=== PATIENT | female | born 1930 | race Caucasian/White ===

== ENCOUNTER 2018-10-29 10:33 | Emergency (ER) | payer MEDICARE, BC ==
[~2018-10-29] VITALS: Ht 149.9 cm; Wt 45.4 kg
[~2018-10-29 10:33] MED LIST: CALCIUM500 MG PO; CIPRO250 M1 PO; ONDANSETRON HCL4 M2 PO; PERCOCET PO; PHENERGAN 25 MG25 M1 PO; UNICOMPLEX M TA1 TA1 PO
[2018-10-29] MEDS ORDERED: CENTANY30 GM TOP (10:53)
[2018-10-29] MEDS ORDERED: AUGMENTIN 875-1 EACH PO (10:53)
[2018-10-29 11:59] VITALS: BP 174/99
== END 2018-10-29 11:59 | disposition home or self-care (01) ==
LOC: M.ERS 10:33
DX: S81.812A Laceration without foreign body, left lower leg, initial encounter (principal); Z88.8 Allergy status to other drugs, medicaments and biological substances; Z88.6 Allergy status to analgesic agent; W55.01XA Bitten by cat, initial encounter; Y93.89 Activity, other specified; Y92.89 Other specified places as the place of occurrence of the external cause; Y99.8 Other external cause status

== ENCOUNTER 2018-11-12 12:29 | Emergency (ER) | payer MEDICARE, BC ==
[~2018-11-12] VITALS: Ht 144.8 cm; Wt 38.6 kg
[~2018-11-12 12:29] MED LIST changes: +AUGMENTIN 875-1 EACH PO; +CENTANY30 GM TOP
[2018-11-12 12:48] VITALS: BP 176/106
[2018-11-12] MEDS ORDERED: AUGMENTIN 500-1 EACH PO (13:24)
== END 2018-11-12 13:45 | disposition home or self-care (01) ==
LOC: M.ERS 12:29
DX: S81.852D Open bite, left lower leg, subsequent encounter (principal); L08.89 Other specified local infections of the skin and subcutaneous tissue; Z88.3 Allergy status to other anti-infective agents; Z88.6 Allergy status to analgesic agent; W55.01XD Bitten by cat, subsequent encounter